=== PATIENT | female | born 1980 | race Caucasian/White ===

== ENCOUNTER → 2018-01-11 | Outpatient (CLI) | payer BC ==
--- NOTE | 2018-01-12 07:42 | MM ---
Reason for exam: screening (asymptomatic). Baseline mammogram. History: Took hormonal contraceptives for 5 years. Physical Findings: Nurse did not find any significant physical abnormalities on exam. MG 3D Screening Mammo W/Cad Bilateral CC and MLO view(s) were taken. The breast tissue is heterogeneously dense. This may lower the sensitivity of mammography. There is no discrete abnormality. These results were verbally communicated with the patient and result sheet given to the patient on 01/11/18. ASSESSMENT: Negative, BI-RAD 1 RECOMMENDATION: Routine screening mammogram of both breasts at age 42.
== END | disposition home or self-care (01) ==
LOC: RADMAMWWP 14:44
PROVIDERS: ATTEND Obstetrics & Gynecology
DX: Z12.31 Encounter for screening mammogram for malignant neoplasm of breast (principal)
CPT/HCPCS: 77063; 77067

== ENCOUNTER 2018-07-17 09:48 | Emergency (ER) | payer BC ==
[2018-07-17 09:53] VITALS: BP 146/85; PULSE 87; RESP 18; TEMP 98
[2018-07-17] MEDS ORDERED: KETOROLAC 60 MG/2 ML VIAL IM STA (10:19)
--- NOTE | 2018-07-17 10:32 | ED ---
Neck Injury/Pain HPI - General Chief Complaint: Neck Pain/Injury Stated Complaint: Neck/back pain Time Seen by Provider: 07/17/18 10:10 Source: patient, RN notes reviewed Mode of arrival: ambulatory Limitations: no limitations - History of Present Illness Initial Comments: 37-year-old female presented emergency Department chief complaint of neck pain. Patient states she's had ongoing neck problems states is related to clenching her teeth. She states she normally wears a bite splint. States he recently broke it's been having worsening symptoms. Patient was a chiropractor regular basis for alignment and adjustments. Patient states she went on Thursday states that she did not have much relief worsening symptoms at the week went back yesterday with no improvement. She states that she cannot tolerate the pain. States he rates from her neck down her shoulder blade and down her left arm. She states his numbness and pain. Symptoms are worse with movement she denies any chest pain or shortness breath no headache no focal weakness blurred vision , nausea vomiting. - Related Data Home Medications Medication Instructions Recorded Confirmed Amitriptyline HCl [Elavil] 1 tab PO HS 05/09/16 05/28/16 Loratadine [Claritin] 5 mg PO DAILY 05/28/16 05/28/16 Previous Rx's Medication Instructions Recorded Hydrocodone/Acetaminophen [[place] 1 - 2 each PO Q6HR PRN #30 tab 05/28/16 5-325] Ibuprofen [Motrin] 600 mg PO Q6HR PRN #30 tab 05/28/16 Cyclobenzaprine [Flexeril] 10 mg PO TID PRN #15 tab 07/17/18 methylPREDNISolone [Medrol Dose 4 mg PO DIRECTED #1 pack 07/17/18 Pack] traMADol HCl [Ultram] 50 mg PO Q6H PRN #20 tab 07/17/18 Allergies Allergy/AdvReac Type Severity Reaction Status Date / Time No Known Allergies Allergy Verified 07/17/18 09:53 Review of Systems ROS Statement: Those systems with pertinent positive or pertinent negative responses have been documented in the HPI. ROS Other: All systems not noted in ROS Statement are negative. Past Medical History Past Medical History: No Reported History Additional Past Medical History / Comment(s): History of cholelithiasis, migraine headaches History of Any Multi-Drug Resistant Organisms: None Reported Additional Past Surgical History / Comment(s): d&c Past Anesthesia/Blood Transfusion Reactions: Motion Sickness, Postoperative Nausea & Vomiting (PONV) Past Psychological History: Depression Smoking Status: Never smoker Past Alcohol Use History: Occasional Past Drug Use History: None Reported General Exam Limitations: no limitations General appearance: alert, in no apparent distress Head exam: Present: atraumatic, normocephalic, normal inspection Eye exam: Present: normal appearance, PERRL, EOMI. Absent: scleral icterus, conjunctival injection, periorbital swelling ENT exam: Present: normal exam, normal oropharynx, mucous membranes moist, TM's normal bilaterally Neck exam: Present: normal inspection, tenderness (Diffuse moderate tenderness on the left paraspinal left trapezius region). Absent: meningismus, full ROM ( Decreased range of motion secondary to pain), lymphadenopathy Respiratory exam: Present: normal lung sounds bilaterally. Absent: respiratory distress, wheezes, rales, rhonchi, stridor Cardiovascular Exam: Present: regular rate, normal rhythm, normal heart sounds. Absent: systolic murmur, diastolic murmur, rubs, gallop, clicks Extremities exam: Present: other (Strength equal bilaterally, full range of motion of both upper extremities she does report mild discomfort with left arm movement) Neurological exam: Present: alert, oriented X3, CN II-XII intact, reflexes normal. Absent: motor sensory deficit Course Vital Signs 07/17/18 09:49 Temperature 98 F Pulse Rate 87 Respiratory 18 Rate Blood Pressure 146/85 O2 Sat by Pulse 100 Oximetry Medical Decision Making - Medical Decision Making 37-year-old female presented for neck pain. Patient had CT which shows loss of lordosis. Patient does have obvious muscle spasms. This may be leading to her cervical radiculopathy-type symptoms. Patient was started on prednisone, Flexeril and tramadol. Patient will follow-up with Dr. Candelaria continued he denies return for any worsening symptoms. Disposition Clinical Impression: Cervical radiculopathy, Cervical paraspinal muscle spasm Disposition: HOME SELF-CARE Condition: Stable Instructions: Cervical Radiculopathy (ED) Additional Instructions: Please return to the Emergency Department if symptoms worsen or any other concerns. Prescriptions: Cyclobenzaprine [Flexeril] 10 mg PO TID PRN #15 tab PRN Reason: Muscle Spasm methylPREDNISolone [Medrol Dose Pack] 4 mg PO DIRECTED #1 pack traMADol HCl [Ultram] 50 mg PO Q6H PRN #20 tab PRN Reason: Pain Is patient prescribed a controlled substance at d/c from ED?: No Referrals: Ann Ramesh MD [Primary Care Provider] - 1-2 days [place] Gibson DO [Doctor of Osteopathic Medicine] - 1-2 days Time of Disposition: 11:18
--- NOTE | 2018-07-17 10:54 | CT ---
EXAMINATION TYPE: CT cervical spine wo con DATE OF EXAM: 07/17/2018 COMPARISON: None. HISTORY: Patient complains of neck pain with left arm/shoulder numbness and tingling. CT DLP: 214.1 mGycm Automated exposure control for dose reduction was used. TECHNIQUE: CT scan of the cervical spine is obtained without contrast, axial images are obtained, sa gittal and coronal reformatted images are also reviewed. FINDINGS: There are mild emphysematous changes within the lungs. There is apical scarring present wendie aterally. There is some shotty deep and posterior reticular adenopathy. No pathologically enlarged lymph nodes are seen. There is a mild reversal of the normal cervical lordosis. Vertebral body height and alignment are maintained. Atlantoaxial relationships are normal. No acute osseous lesion is seen. Intervertebral foramina are widely patent. There is no significant compressive discopathy. IMPRESSION: 1. NO ACUTE OSSEOUS LESION. 2. REVERSAL OF THE NORMAL CERVICAL LORDOSIS MAY BE SECONDARY TO MUSCULAR SPASM. 3. NO ACUTE COMPRESSIVE DISCOPATHY OR NEURAL COMPRESSION. 4. EMPHYSEMATOUS CHANGES WITHIN THE LUNGS.
== END 2018-07-17 11:30 | disposition home or self-care (01) ==
LOC: EC 09:48
DX: M54.12 Radiculopathy, cervical region (principal); M62.830 Muscle spasm of back; Z79.899 Other long term (current) drug therapy
CPT/HCPCS: 99283; 96372; 72125; J1885

== ENCOUNTER → 2021-06-05 | Outpatient (CLI) | payer BC ==
--- NOTE | 2021-06-05 13:45 | US ---
EXAMINATION TYPE: US transvaginal DATE OF EXAM: 06/05/2021 COMPARISON: 05/05/2014 CLINICAL HISTORY: N93.9 ABN UTERINE BLEEDING. bleeding with clots for 3-4 weeks, pelvic pain, TECHNIQUE: TV. Transvaginal sonographic images Date of LMP: unknown, bleeding constantly EXAM MEASUREMENTS: Uterus: 11.2 x 6.1 x 6.7 cm Endometrial Stripe: 1.3 cm Right Ovary: 4.5 x 3.5 x 3.1 cm Left Ovary: 2.6 x 1.4 x 2.2 cm 1. Uterus: Anteverted wnl 2. Endometrium: wnl 3. Right Ovary: 3.1cm simple cyst seen 4. Left Ovary: wnl 5. Bilateral Adnexa: wnl 6. Posterior cul-de-sac: wnl IMPRESSION: No definite sonographic abnormality is identified.
== END | disposition home or self-care (01) ==
LOC: RADUSWWP 12:49
PROVIDERS: ATTEND Family Medicine
DX: N93.9 Abnormal uterine and vaginal bleeding, unspecified (principal)
CPT/HCPCS: 76830

== ENCOUNTER → 2021-06-06 | Outpatient (CLI) | payer BC ==
[2021-06-06 15:04] LABS: Basophils # (A) 0.1 k/uL (0-0.2); Basophils % (A) 1 %; Eosinophils # (A) 0.1 k/uL (0-0.7); Eosinophils % (A) 2 %; HCT 39.2 % (34.0-46.0); HGB 13.6 gm/dL (11.4-16.0); Lymphocytes # (A) 1.5 k/uL (1.0-4.8); Lymphocytes % (A) 21 %; MCH 30.4 pg (25.0-35.0); MCHC 34.7 g/dL (31.0-37.0); MCV 87.8 fL (80.0-100.0); Mean Platelet Volume 6.5; Monocytes # (A) 0.4 k/uL (0-1.0); Monocytes % (A) 5 %; Neutrophils % (A) 70 %; Platelet Count 335 k/uL (150-450); RBC 4.46 m/uL (3.80-5.40); RDW 14.4 % (11.5-15.5); WBC 7.1 k/uL (3.8-10.6)
== END | disposition home or self-care (01) ==
LOC: LABPAT 09:39
PROVIDERS: ATTEND Obstetrics & Gynecology
DX: Z01.812 Encounter for preprocedural laboratory examination (principal); N95.0 Postmenopausal bleeding
CPT/HCPCS: 36415; 85025

== ENCOUNTER → 2021-06-21 | Day surgery (SDC) | payer BC ==
[2021-06-19 10:04] VITALS: BMI 25.7
[~2021-06-21] MED LIST: DEXAMETHASONE SOD PHOSPHATE 4 MG/ML 1 ML VIAL IV ONE; LACTATED RINGERS 1,000 ML IV ONE; LACTATED RINGERS 1,000 ML IV SCH; LIDOCAINE 1% (10MG/ML) FOR IV START INTRADERMA ONE; LIDOCAINE 1% (10MG/ML) FOR IV START INTRADERMA PRN; LIDOCAINE 1% INJ 10MG/ML (20 ML MDV) ONE; MIDAZOLAM 2 MG/2 ML VIAL IV PRN; MIDAZOLAM 2 MG/2 ML VIAL ONE; ONDANSETRON 4 MG/2 ML VIAL IVP ONE; PROPOFOL 10 MG/ML 20 ML VIAL IV ONE; Pre Op ABX Message 1 EACH MISC MISCELLANE ONE; SCOPOLAMINE 1.5MG/72HR PATCH TRANSDERM ONE; fentaNYL (PF) 50 MCG/ML 2 ML AMP ONE
[2021-06-21 09:07] VITALS: TEMP 97.5
--- NOTE | 2021-06-21 09:07 | P.OP ---
Date of Procedure: 06/21/21 Preoperative Diagnosis: Menorrhagia, anemia Postoperative Diagnosis: Same, large multiparous cervix, grade 2 uterine prolapse. Procedure(s) Performed: Hysteroscopy, NovaSure endometrial ablation Anesthesia: KEYLA Surgeon: Maria A Mejias Estimated Blood Loss (ml): 20 IV fluids (ml): 500 Urine output (ml): 300 Pathology: none sent Condition: stable Disposition: PACU Operative Findings: Large multiparous cervix, retroverted uterus, grade 2+ uterine prolapse. Negative adnexa bilaterally. Normal-appearing endometrial cavity. Description of Procedure: Patient is brought to the operating suite where a general anesthetic is administered without difficulty. She's placed in the dorsal lithotomy position. The appropriate timeout is performed to assure proper patient and procedural identification. Urine hCG is negative. Bladder is drained for approximately 300 mL of clear yellow urine. Examination under anesthesia reveals a 2+ uterine prolapse, large multiparous cervix, negative adnexa bilaterally, retroverted cavity. Weighted speculum was placed into the vagina and the anterior lip of the cervix is grasped with a double-tooth tenaculum. The cervix is gently and systematically dilated using Hanks dilators. Hysteroscope was placed, cavity is distended with sterile saline and inspected. No polyps, fibroids, or defects noted. Hysteroscope was removed. The NovaSure wand is placed and seated properly. Uterine length of 6.5 cm, width of 4.7 cm is noted. The machine is properly calibrated and enabled. For 46 seconds and a power of 168 W the procedure is carried out. When completed, t he wand is reduced and removed. Hysteroscope was once again placed and the cavity appears to be reasonably uniformly blanched. Instrumentation is removed. All sponge needle and enhancement counts are correct. Cervix is clean and dry. Patient is brought back to recovery room in very good condition with stable vital signs including a blood pressure of 110/64, pulse 66, 97% O2 saturation. Toradol is given prior to leaving the operative room. She will follow-up with me in the office in 2 weeks.
[2021-06-21] MEDS: HYDROmorphone 0.5 MG/0.5 ML SYRINGE IVP PRN ×2 (09:13→09:22)
[2021-06-21 10:39] VITALS: RESP 17
[2021-06-21 11:20] VITALS: BP 111/70; PULSE 66
== END ==
LOC: OR 07:15
PROVIDERS: ATTEND Obstetrics & Gynecology
DX: N81.4 Uterovaginal prolapse, unspecified (principal); Z64.1 Problems related to multiparity; N92.0 Excessive and frequent menstruation with regular cycle; D64.9 Anemia, unspecified; J45.909 Unspecified asthma, uncomplicated; E07.9 Disorder of thyroid, unspecified; M50.20 Other cervical disc displacement, unspecified cervical region; Z90.49 Acquired absence of other specified parts of digestive tract; Z98.890 Other specified postprocedural states; Z82.49 Family history of ischemic heart disease and other diseases of the circulatory system; Z83.49 Family history of other endocrine, nutritional and metabolic diseases; Z82.0 Family history of epilepsy and other diseases of the nervous system; Z79.890 Hormone replacement therapy
CPT/HCPCS: 81025; 58563; J2250; J1100; J2405; J2001; J3010; J2704; J1170

== ENCOUNTER → 2021-08-16 | Outpatient (CLI) | payer BC ==
[2021-08-16 11:44] LABS: African American GFR (CKD) >90 (>60 ml/min/1.73 sqM); Anion Gap 6 mmol/L; Blood Urea Nitrogen 17 mg/dL (7-17); Carbon Dioxide 27 mmol/L (22-30); Chloride 103 mmol/L (98-107); Glucose 95 mg/dL (74-99); Non-African American GFR(CKD) >90 (>60 ml/min/1.73 sqM); Potassium 4.5 mmol/L (3.5-5.1); Sodium 136 mmol/L (137-145)
[2021-08-16 11:46] LABS: Basophils % (A) 1 %; Eosinophils # (A) 0.1 k/uL (0-0.7); Eosinophils % (A) 1 %; HCT 44.6 % (34.0-46.0); HGB 14.9 gm/dL (11.4-16.0); Lymphocytes # (A) 1.2 k/uL (1.0-4.8); Lymphocytes % (A) 18 %; MCH 30.3 pg (25.0-35.0); MCHC 33.5 g/dL (31.0-37.0); MCV 90.5 fL (80.0-100.0); Mean Platelet Volume 6.5; Monocytes # (A) 0.4 k/uL (0-1.0); Monocytes % (A) 6 %; Neutrophils # (A) 4.9 k/uL (1.3-7.7); Neutrophils % (A) 74 %; Platelet Count 323 k/uL (150-450); RBC 4.93 m/uL (3.80-5.40); RDW 12.4 % (11.5-15.5); WBC 6.6 k/uL (3.8-10.6)
== END | disposition home or self-care (01) ==
LOC: LABWHC1 10:23
PROVIDERS: ATTEND Obstetrics & Gynecology
DX: Z01.812 Encounter for preprocedural laboratory examination (principal); N92.0 Excessive and frequent menstruation with regular cycle; N94.0 Mittelschmerz; N80.0 Endometriosis of uterus; R10.2 Pelvic and perineal pain
CPT/HCPCS: 36415; 80051; 82565; 82947; 84520; 85025; 87086

== ENCOUNTER 2021-08-26 08:35 | Observation (INO) | payer BC ==
[2021-08-23 09:17] VITALS: BMI 25.0
[~2021-08-26 08:35] MED LIST changes: -LACTATED RINGERS 1,000 ML IV ONE; -LIDOCAINE 1% (10MG/ML) FOR IV START INTRADERMA ONE; -LIDOCAINE 1% INJ 10MG/ML (20 ML MDV) ONE; +METOCLOPRAMIDE 5 MG/ML 2 ML VIAL IVP PRN; -MIDAZOLAM 2 MG/2 ML VIAL ONE; -PROPOFOL 10 MG/ML 20 ML VIAL IV ONE; -Pre Op ABX Message 1 EACH MISC MISCELLANE ONE; -fentaNYL (PF) 50 MCG/ML 2 ML AMP ONE
[2021-08-26] MEDS ORDERED: MIDAZOLAM 2 MG/2 ML VIAL IVP ONE (09:46)
[2021-08-26] MEDS ORDERED: diphenhydrAMINE 50 MG/ML 1 ML VIAL ONE (10:01)
[2021-08-26] MEDS ORDERED: diphenhydrAMINE 50 MG/ML 1 ML VIAL IVP ONE (10:03)
[2021-08-26] MEDS ORDERED: LIDOCAINE 1% INJ 10MG/ML (20 ML MDV) ONE (11:09)
[2021-08-26] MEDS ORDERED: fentaNYL (PF) 50 MCG/ML 2 ML AMP ONE (11:09)
[2021-08-26] MEDS ORDERED: PROPOFOL 10 MG/ML 20 ML VIAL IV ONE (11:09)
[2021-08-26] MEDS ORDERED: ACETAMINOPHEN IV (For NPO) 1,000 MG/100 ML VIAL ONE (11:09)
[2021-08-26] MEDS ORDERED: SUCCINYLCHOLINE CHLORIDE 100 MG/5 ML SYR IV ONE (11:09)
[2021-08-26] MEDS ORDERED: KETOROLAC 15 MG/ML 1 ML VIAL ONE (11:09)
[2021-08-26] MEDS ORDERED: MORPHINE SULFATE (PF) 0.3 MG/0.3 ML SYR ONE (11:09)
[2021-08-26] MEDS ORDERED: BACITRACIN ZINC 500 UNIT/GM OINT 28.4 GM TUBE TOPICAL ONE (11:23)
[2021-08-26] MEDS ORDERED: VASOPRESSIN 20 UNIT/ML 1 ML VIAL SQ ONE (11:23)
[2021-08-26] MEDS ORDERED: LACTATED RINGERS 1,000 ML IV ONE (12:07)
[2021-08-26] MEDS ORDERED: ZOLPIDEM 5 MG TAB PO PRN (12:24)
[2021-08-26] MEDS ORDERED: SIMETHICONE 80 MG CHEWABLE PO PRN (12:24)
[2021-08-26] MEDS ORDERED: METOCLOPRAMIDE 5 MG/ML 2 ML VIAL IVP PRN (12:24)
[2021-08-26] MEDS ORDERED: diphenhydrAMINE 50 MG/ML 1 ML VIAL IVP PRN (12:24)
[2021-08-26] MEDS ORDERED: IBUPROFEN 600 MG TAB PO PRN (12:24)
[2021-08-26] MEDS ORDERED: ONDANSETRON 4 MG/2 ML VIAL IVP PRN (12:24)
--- NOTE | 2021-08-26 12:24 | P.OP ---
Date of Procedure: 08/26/21 Preoperative Diagnosis: Menorrhagia, adenomyosis, dyspareunia Postoperative Diagnosis: Same, normal-appearing ovaries bilaterally Procedure(s) Performed: Vaginal hysterectomy Anesthesia: KEYLA Surgeon: Maria A Mejias Porcelain Turner #1: Deshaun Potter Estimated Blood Loss (ml): 50 IV fluids (ml): 500 Urine output (ml): 450 Pathology: other (Cervix and uterus) Condition: stable Disposition: PACU Description of Procedure: Patient is brought to the operating suite where a general anesthetic is administered without difficulty after placement of spinal with Duramorph. She's placed in the dorsal lithotomy position. Antibiotics given. The cervix, vagina, perineal bodies are all prepped and draped in usual sterile fashion. The appropriate timeout is performed to assure proper patient and procedural identification. Bladder is drained for approximately 450 mL of clear yellow urine. Speculum was placed into the vagina. Anterior lip of the cervix is grasped with a double-tooth tenaculum. Cervix is injected circumferentially with a dilute Pitressin solution. A winnebago blade scalpel is used to sweep the mucosa from the underlying fascial plane. Peritoneum is entered at 6:00, suture tied with 2-0 Vicryl and held with a hemostat. The large billed speculum is then placed into the peritoneal cavity. The right uterosacral ligament is identified, clamped cut and suture ligated, it is held laterally with a hemostat. Same procedure is carried out contralaterally. Uterine vasculature is identified, clamped cut and suture ligated. Please note that 0 Vicryl suture is used for the entire hysterectomy procedure. 2 additional pedicles are taken superior to the vessels. Peritoneum is entered at 12:00. The uterus is "walked out" posteriorly. Eduardo clamps are used across the final pedicles. Cervix and uterus are removed. The pedicles are tied with 0 Vicryl suture in a Johanny stitch, flashed, and retied for excellent hemostasis. Both ovaries appear normal to inspection. All pedicles and vessels at this time are hemostatically intact. The speculum is then changed to the shallow weighted speculum. The 2-0 Vicryl suture at 6:00 is brought around in a pursestring fashion to close the perit oneum. Uterosacral ligaments are brought across to incorporate the opposite ligament as well as vaginal mucosa. 3 additional [id number] 8 sutures of 0 Vicryl are used for final vaginal cuff closure. The vaginal cuff is clean and dry. It is packed with one-inch iodophor gauze with basic tracing. Graves catheter is placed, urine is clear. All sponge needle and enhancement counts are correct. Total estimated blood loss 50 mL's. All sponge needle and enhancement counts are correct. Patient is brought back to recovery room in excellent condition with stable vital signs including blood pressure 97/51, pulse 57.
[2021-08-26] MEDS: HYDROmorphone 0.5 MG/0.5 ML SYRINGE IVP PRN ×3 (12:41→13:15)
[2021-08-26] MEDS ORDERED: NALOXONE 0.4 MG/ML 1 ML VIAL IV PRN (13:55)
[2021-08-26] MEDS: KETOROLAC 15 MG/ML 1 ML VIAL IVP PRN ×2 (16:51→22:56)
[2021-08-26] MEDS ORDERED: SENNOSIDES-DOCUSATE SODIUM 1 EACH TAB PO STA (20:20)
[2021-08-26 23:44] VITALS: TEMP 98
[2021-08-27] MEDS ORDERED: THYROID, PORK 30 MG TAB PO SCH (06:00)
[2021-08-27] MEDS: KETOROLAC 15 MG/ML 1 ML VIAL IVP PRN (06:03)
--- NOTE | 2021-08-27 07:41 | P.DS ---
Providers Date of admission: 08/26/21 23:38 Expected date of discharge: 08/27/21 Attending physician: Maria A Mejias Primary care physician: [facility] Course: This is a 41-year-old white female 3 para 3003 who presented with increasingly symptomatic menorrhagia and dyspareunia. Sonographic evidence of adenomyosis was noted, decision was made to proceed with vaginal hysterectomy. Please see dictated history and physical for details. Patient underwent vaginal hysterectomy yesterday, spinal with Duramorph was placed. She did well intraoperatively, ovaries left in situ per her wishes. Graevs catheter and vaginal packing were placed. She was brought to the recovery room and then up to the floor in very stable condition. This morning the patient is feeling well. She is voiding, ambulating, passing flatus without difficulty. There is only scant vaginal bleeding. Vital signs are stable and she is afebrile. There is no CVA tenderness. Extremities are negative. The abdomen is soft and nontender, active bowel sounds, no rebound or guarding. Patient is judged to be in very good condition for discharge home. She will follow-up with me in the office in 2 weeks. She is reminded no intercourse, tampons or douching. She will use [id number] Advil or Aleve, or Motrin as needed for pain. She will call with any fevers shakes or chills, foul smelling or copious lochia, with the passage of large blood clots, with any pain not alleviated by [id number] products, or indeed with any concerns. Assessment: Doing well postoperative day #1 Patient Condition at Discharge: Good Plan - Discharge Summary Discharge Rx Participant: No New Discharge Prescriptions: No Action Ibuprofen [Motrin Ib] 800 mg PO DIRECTED PRN PRN Reason: Pain Multivit with Calcium,Iron,Min [Women's Multivitamin] 1 each PO DAILY Iron 26 mg PO DAILY Nitrofurantoin Monohyd/M-Cryst [Macrobid] 100 mg PO Q12HR Thyroid,Pork [Waste Removalist Thyroid] 15 mg PO DAILY L.acidoph,Paracasei, B.lactis [Probiotic] 1 each PO DAILY Cholecalciferol [Vitamin D3 (25 Mcg = 1000 Iu)] 5,000 unit PO DAILY Amitriptyline HCl [Elavil] 25 mg PO HS Discharge Medication List Cholecalciferol [Vitamin D3 (25 Mcg = 1000 Iu)] 5,000 unit PO DAILY 06/19/21 [History] Ibuprofen [Motrin Ib] 800 mg PO DIRECTED PRN 06/19/21 [History] Iron 26 mg PO DAILY 06/19/21 [History] L.acidoph,Paracasei, B.lactis [Probiotic] 1 each PO DAILY 06/19/21 [History] Multivit with Calcium,Iron,Min [Women's Multivitamin] 1 each PO DAILY 06/19/21 [History] Thyroid,Pork [Waste Removalist Thyroid] 15 mg PO DAILY 06/19/21 [History] Amitriptyline HCl [Elavil] 25 mg PO HS 08/23/21 [History] Nitrofurantoin Monohyd/M-Cryst [Macrobid] 100 mg PO Q12HR 08/23/21 [History] Follow up Appointment(s)/Referral(s): Maria A Mejias MD [STAFF PHYSICIAN] - 2 Weeks Discharge Disposition: HOME SELF-CARE
[2021-08-27 08:30] VITALS: BP 114/66; PULSE 63; RESP 18
[2021-08-27] MEDS ORDERED: ACETAMINOPHEN TAB 325 MG TAB PO PRN (12:24)
--- NOTE | 2021-08-27 13:21 | P.ANPRN ---
Procedure Note - Anesthesia - Epidural/Spinal Spinal Time Out Performed: Yes Date of Procedure: 08/26/21 Procedure Start Time: 09:45 Procedure Stop Time: 09:48 Location of Patient: PreOp Indication: Acute Post-Operative Pain, Requested by Surgeon Sedation Type: Sedate with meaningful contact maintained Preparation: Sterile Prep Position: Sitting Needle Guage: 25 Blood Aspirated: No Pain Paresthesia on Injection Noted: No Events: Uneventful and Well Tolerated (duramoph 300 edward plus fentanyl 25 edward)
== END 2021-08-27 09:54 | disposition home or self-care (01) ==
LOC: OR 08:35 → 4FBP 12:21 → OR 23:38
PROVIDERS: ADMIT Obstetrics & Gynecology; ATTEND Obstetrics & Gynecology
DX: N80.0 Endometriosis of uterus (principal); N94.10 Unspecified dyspareunia; N94.6 Dysmenorrhea, unspecified; N92.0 Excessive and frequent menstruation with regular cycle; N93.8 Other specified abnormal uterine and vaginal bleeding; E07.9 Disorder of thyroid, unspecified; J45.909 Unspecified asthma, uncomplicated; M50.20 Other cervical disc displacement, unspecified cervical region; Z20.822 Contact with and (suspected) exposure to COVID-19; Z79.890 Hormone replacement therapy; Z90.49 Acquired absence of other specified parts of digestive tract; Z98.890 Other specified postprocedural states; Z82.49 Family history of ischemic heart disease and other diseases of the circulatory system; Z82.69 Family history of other diseases of the musculoskeletal system and connective tissue; Z83.49 Family history of other endocrine, nutritional and metabolic diseases
CPT/HCPCS: 58260; 81025; 86900; 86901; 86850; 88307; 87635; 62322; G0378; J2250; J1200; J1100; J2765; J0690; J2405; J2001; J2274; J3010; J0131; J1885 ×2; J0330; J2704; J1170

== ENCOUNTER 2021-08-28 13:08 | Day surgery (SDC) | payer BC ==
[2021-08-28] MEDS ORDERED: LACTATED RINGERS 1,000 ML IV ONE (13:36)
[2021-08-28] MEDS ORDERED: LIDOCAINE 1% (10MG/ML) FOR IV START INTRADERMA ONE (13:36)
[2021-08-28 14:00] VITALS: TEMP 97.9
[2021-08-28 14:52] VITALS: RESP 16
[2021-08-28] MEDS ORDERED: ACETAMINOPHEN TAB 325 MG TAB ONE (15:10)
[2021-08-28] MEDS ORDERED: ACETAMINOPHEN TAB 325 MG TAB PO ONE (15:10)
[2021-08-28 15:44] VITALS: BP 122/78; PULSE 75
--- NOTE | 2021-08-28 17:32 | P.PN ---
Progress Note - Text Anesthesia was consulted by Dr. Mejias to evaluate a patient that has symptoms and signs of a post dural puncture headache. The patient received a spinal 2. days ago. She is status post vaginal hysterectomy. The patient states that her headache is increased in severity when she is standing and sitting. Her headache symptoms subside when she is in the supine position. The patient has tried a course of conservative therapy including fluids, caffeine and pain meds. The conservative treatment has not relieved her headache symptoms when she is in the sitting and standing position. Patient states she feels pain in the back of her neck up into her temporal and frontal regions. Patient does exhibit some mild photophobia. The patient does report some nausea at this time. Procedure: The procedure and its risks and benefits were explained to the patient. The patient understood and consented to have an lumbar epidural epi dural blood patch performed. The patient was placed in the sitting position. The patient's low back was sterilely prepped and draped. An 18-gauge Touhy was placed in the patient's epidural space at L3-L4 without difficulty. No CSF or blood was observed. Then approximately[17 ] mL's of the patient's autologous blood was injected in the epidural space incrementally. Patient's blood was drawn by an sales support assistant under sterile conditions. The patient then noticed a decrease intensity of her headache in the sitting position almost immdiately. The patient was then placed in the supine position. She tolerated the procedure well. The patient was instructed to remain at bed rest for the next 2-3 hours after she gets home.. She also was instructed to continue with fluids and any pain medicines as needed. The patient was also instructed to refrain from any bending or lifting today.
== END 2021-08-28 15:46 | disposition home or self-care (01) ==
LOC: OR 13:08
PROVIDERS: ATTEND Anesthesiology
DX: G97.1 Other reaction to spinal and lumbar puncture (principal)
CPT/HCPCS: 62273

== ENCOUNTER → 2021-11-11 | Outpatient (CLI) | payer BC ==
--- NOTE | 2021-11-12 09:32 | MM ---
Reason for exam: additional evaluation requested from prior study. Last mammogram was performed 3 years and 10 months ago. History: Took hormonal contraceptives for 5 years. Taking progesterone for 6 months beginning at age 32. Physical Findings: Nurse did not find any significant physical abnormalities on exam. MG 3D Diag Mammo W/Cad GIGI Bilateral CC and MLO view(s) were taken. Prior study comparison: January 11, 2018, bilateral MG 3d screening mammo w/cad. The breast tissue is heterogeneously dense. This may lower the sensitivity of mammography. There is no discrete abnormality. These results were verbally communicated with the patient and result sheet given to the patient on 11/11/21. ASSESSMENT: Incomplete: need additional imaging evaluation, BI-RAD 0 RECOMMENDATION: Ultrasound of the left breast. (focal area of pain dense tissue)
--- NOTE | 2021-11-12 09:33 | USB ---
Reason for exam: additional evaluation requested from abnormal screening. History: Took hormonal contraceptives for 5 years. Taking progesterone for 6 months beginning at age 32. US Breast Limited LT Left limited breast ultrasound including focal area of concern, retroareolar and axilla demonstrates no cystic or solid lesion seen. These results were verbally communicated with the patient and result sheet given to the patient on 11/11/21. ASSESSMENT: Negative, BI-RAD 1 RECOMMENDATION: Routine screening mammogram of both breasts at age 42. Manage patient on a clinical basis.
== END | disposition home or self-care (01) ==
LOC: RADMAMWWP 14:20
PROVIDERS: ATTEND Obstetrics & Gynecology
DX: N64.4 Mastodynia (principal); R92.8 Other abnormal and inconclusive findings on diagnostic imaging of breast
CPT/HCPCS: 77062; 77066

== ENCOUNTER 2022-02-11 13:10 | Emergency (ER) | payer BC ==
[2022-02-11 13:28] VITALS: RESP 18
--- NOTE | 2022-02-11 13:54 | ED ---
General Adult HPI - General Chief complaint: Urogenital Stated complaint: Anxiety Time Seen by Provider: 02/11/22 13:15 Source: patient, EMS, RN notes reviewed, old records reviewed Mode of arrival: EMS Limitations: no limitations - History of Present Illness Initial comments: This is a 41-year-old female who presents to the emergency department stating that she woke up this morning was feeling weak and tired. Patient states she went to work and she got lightheaded started having a panic attack. Patient states she was breathing extremely fast. Tingling around her mouth and her fingers and thought she might pass out. At this point time she also felt like she couldn't get a full breath in the end else called. Patient states currently she is feeling little bit better but she still feels very fatigued. Patient states she has been battling a couple urinary tract infections over the last few months as well as yeast infection and has had 3 episodes where she's having hives and doesn't have an explanation. Patient states she's also going through some marital difficulties and that has caused her quite a bit of stress. - Related Data Home Medications Medication Instructions Recorded Confirmed L.acidoph,Paracasei, B.lactis 1 tab PO HS 06/19/21 02/11/22 [Probiotic] Multivit with Calcium,Iron,Min 1 tab PO HS 06/19/21 02/11/22 [Women's Multivitamin] Amitriptyline HCl 50 mg PO HS 02/11/22 02/11/22 Cholecalciferol (Vitamin D3) 75 mcg PO HS 02/11/22 02/11/22 [Vitamin D3 (3000 Iu)] Cranberry Fruit Extract [Cranberry] 500 mg PO HS 02/11/22 02/11/22 Allergies Allergy/AdvReac Type Severity Reaction Status Date / Time sulfamethoxazole Allergy Rash/Hives/lip Verified 02/11/22 14:36 [From Bactrim] swelling trimethoprim [From Bactrim] Allergy Rash/Hives/lip Verified 02/11/22 14:36 swelling Review of Systems ROS Statement: Those systems with pertinent positive or pertinent negative responses have been documented in the HPI. ROS Other: All systems not noted in ROS Statement are negative. Past Medical History Past Medical History: No Reported History Additional Past Medical History / Comment(s): History of cholelithiasis, migraine headaches History of Any Multi-Drug Resistant Organisms: None Reported Past Surgical History: Cholecystectomy, Uterine Ablation Additional Past Surgical History / Comment(s): d&c Past Anesthesia/Blood Transfusion Reactions: Motion Sickness, Postoperative Nausea & Vomiting (PONV) Past Psychological History: Depression Additional Psychological History / Comment(s): ppd Smoking Status: Never smoker Past Alcohol Use History: Occasional Past Drug Use History: None Reported - Past Family History Mother Family Medical History: No Reported History Father Additional Family Medical History / Comment(s): NOT SURE OF FATHER'S HHX General Exam - General Exam Comments Initial Comments: GENERAL: Patient is well-developed and well-nourished. Patient is nontoxic and well- hydrated and is in no acute distress. ENT: Neck is soft and supple. No significant lymphadenopathy is noted. Oropharynx is clear. Moist mucous membranes. Neck has full range of motion without eliciting any pain. EYES: The sclera were anicteric and conjunctiva were pink and moist. Extraocular movements were intact and pupils were equal round and reactive to light. Eyelids were unremarkable. PULMONARY: Unlabored respirations. Good breath sounds bilaterally. No audible rales rhonchi or wheezing was noted. CARDIOVASCULAR: There is a regular rate and rhythm without any murmurs gallops or rubs. ABDOMEN: Soft and nontender with normal bowel sounds. SKIN: Skin is clear with no lesions or rashes and otherwise unremarkable. NEUROLOGIC: Patient is alert and oriented x3. Cranial nerves II through XII are grossly intact. Motor and sensory are also intact. Normal speech, volume and content. Symmetrical smile. MUSCULOSKELETAL: Normal extremities with adequate strength and full range of motion. No lower extremity swelling or edema. No calf tenderness. LYMPHATICS: No significant lymphadenopathy is noted PSYCHIATRIC: Patient is mildly anxious Limitations: no limitations Course Vital Signs 02/11/22 13:13 Temperature 98.0 F Pulse Rate 74 Respiratory 18 Rate Blood Pressure 130/79 O2 Sat by Pulse 99 Oximetry Medical Decision Making - Medical Decision Making EKG shows sinus rhythm at 60 bpm MA interval 190 QRS is 104 QT interval is 4:15 QTC is 432. Patient's EKG shows no ST segment elevation or depression Chest x-ray shows no acute abnormality. I gave the patient Ativan emergency department I will back in and reevaluated her and she was doing considerably better and she agrees was probably an anxiety attack. - Lab Data Result diagrams: 02/11/22 14:06 02/11/22 14:06 Lab Results 02/11/22 02/11/22 02/11/22 Range/Units 14:06 14:06 14:06 WBC 7.4 (3.8-10.6) k/uL RBC 4.62 (3.80-5.40) m/uL Hgb 14.7 (11.4-16.0) gm/dL Hct 41.9 (34.0-46.0) % MCV 90.6 (80.0-100.0) fL MCH 31.8 (25.0-35.0) pg MCHC 35.1 (31.0-37.0) g/dL RDW 12.0 (11.5-15.5) % Plt Count 383 (150-450) k/uL MPV 6.5 Neutrophils % 74 % Lymphocytes % 17 % Monocytes % 7 % Eosinophils % 1 % Basophils % 1 % Neutrophils # 5.4 (1.3-7.7) k/uL Lymphocytes # 1.2 (1.0-4.8) k/uL Monocytes # 0.5 (0-1.0) k/uL Eosinophils # 0.0 (0-0.7) k/uL Basophils # 0.0 (0-0.2) k/uL PT 11.1 (9.0-12.0) sec INR 1.0 (<1.2) APTT 23.8 (22.0-30.0) sec Sodium (137-145) mmol/L Potassium (3.5-5.1) mmol/L Chloride (98-107) mmol/L Carbon Dioxide (22-30) mmol/L Anion Gap mmol/L BUN (7-17) mg/dL Creatinine (0.52-1.04) mg/dL Est GFR (CKD-EPI)AfAm (>60 ml/min/1.73 sqM) Est GFR (CKD-EPI)NonAf (>60 ml/min/1.73 sqM) Glucose (74-99) mg/dL Calcium (8.4-10.2) mg/dL Magnesium (1.6-2.3) mg/dL Total Bilirubin (0.2-1.3) mg/dL AST (14-36) U/L ALT (4-34) U/L Alkaline Phosphatase (38-126) U/L Troponin I (0.000-0.034) ng/mL Total Protein (6.3-8.2) g/dL Albumin (3.5-5.0) g/dL Urine Color Colorless Urine Appearance Clear (Clear) Urine pH 7.5 (5.0-8.0) Ur Specific Bladen 1.004 (1.001-1.035) Urine Protein Negative (Negative) Urine Glucose (UA) Negative (Negative) Urine Ketones Trace H (Negative) Urine Blood Negative (Negative) Urine Nitrite Negative (Negative) Urine Bilirubin Negative (Negative) Urine Urobilinogen <2.0 (<2.0) mg/dL Ur Leukocyte Esterase Negative (Negative) 02/11/22 02/11/22 Range/Units 14:06 14:06 WBC (3.8-10.6) k/uL RBC (3.80-5.40) m/uL Hgb (11.4-16.0) gm/dL Hct (34.0-46.0) % MCV (80.0-100.0) fL MCH (25.0-35.0) pg MCHC (31.0-37.0) g/dL RDW (11.5-15.5) % Plt Count (150-450) k/uL MPV Neutrophils % % Lymphocytes % % Monocytes % % Eosinophils % % Basophils % % Neutrophils # (1.3-7.7) k/uL Lymphocytes # (1.0-4.8) k/uL Monocytes # (0-1.0) k/uL Eosinophils # (0-0.7) k/uL Basophils # (0-0.2) k/uL PT (9.0-12.0) sec INR (<1.2) APTT (22.0-30.0) sec Sodium 136 L (137-145) mmol/L Potassium 4.0 (3.5-5.1) mmol/L Chloride 102 (98-107) mmol/L Carbon Dioxide 21 L (22-30) mmol/L Anion Gap 13 mmol/L BUN 13 (7-17) mg/dL Creatinine 0.76 (0.52-1.04) mg/dL Est GFR (CKD-EPI)AfAm >90 (>60 ml/min/1.73 sqM) Est GFR (CKD-EPI)NonAf >90 (>60 ml/min/1.73 sqM) Glucose 93 (74-99) mg/dL Calcium 9.4 (8.4-10.2) mg/dL Magnesium 2.1 (1.6-2.3) mg/dL Total Bilirubin 0.9 (0.2-1.3) mg/dL AST 24 (14-36) U/L ALT 15 (4-34) U/L Alkaline Phosphatase 49 (38-126) U/L Troponin I <0.012 (0.000-0.034) ng/mL Total Protein 7.7 (6.3-8.2) g/dL Albumin 4.5 (3.5-5.0) g/dL Urine Color Urine Appearance (Clear) Urine pH (5.0-8.0) Ur Specific Bladen (1.001-1.035) Urine Protein (Negative) Urine Glucose (UA) (Negative) Urine Ketones (Negative) Urine Blood (Negative) Urine Nitrite (Negative) Urine Bilirubin (Negative) Urine Urobilinogen (<2.0) mg/dL Ur Leukocyte Esterase (Negative) Disposition Clinical Impression: Acute anxiety Disposition: HOME SELF-CARE Condition: Good Instructions (If sedation given, give patient instructions): Anxiety (ED) Is patient prescribed a controlled substance at d/c from ED?: No Referrals: Ann Ramesh MD [Primary Care Provider] - 1-2 days Time of Disposition: 14:56
[2022-02-11 14:24] LABS: Basophils % (A) 1 %; Eosinophils % (A) 1 %; HCT 41.9 % (34.0-46.0); HGB 14.7 gm/dL (11.4-16.0); Lymphocytes # (A) 1.2 k/uL (1.0-4.8); Lymphocytes % (A) 17 %; MCH 31.8 pg (25.0-35.0); MCHC 35.1 g/dL (31.0-37.0); MCV 90.6 fL (80.0-100.0); Mean Platelet Volume 6.5; Monocytes # (A) 0.5 k/uL (0-1.0); Monocytes % (A) 7 %; Neutrophils # (A) 5.4 k/uL (1.3-7.7); Neutrophils % (A) 74 %; Platelet Count 383 k/uL (150-450); RBC 4.62 m/uL (3.80-5.40); WBC 7.4 k/uL (3.8-10.6)
--- NOTE | 2022-02-11 14:33 | XR ---
EXAMINATION TYPE: XR chest 2V DATE OF EXAM: 02/11/2022 COMPARISON: NONE HISTORY: Chest pain. TECHNIQUE: Frontal and lateral views of the chest are obtained. FINDINGS: There is no focal air space opacity, pleural effusion, or pneumothorax seen. The cardiac silhouette size is within normal limits. Spine is straightened on lateral view. IMPRESSION: No acute process.
[2022-02-11] MEDS: LORazepam 2 MG/ML INJ IV STA ×2 (14:38→14:54)
[2022-02-11 14:41] LABS: ALT 15 U/L (4-34); AST 24 U/L (14-36); African American GFR (CKD) >90 (>60 ml/min/1.73 sqM); Albumin 4.5 g/dL (3.5-5.0); Alkaline Phosphatase 49 U/L (38-126); Anion Gap 13 mmol/L; Blood Urea Nitrogen 13 mg/dL (7-17); Calcium 9.4 mg/dL (8.4-10.2); Carbon Dioxide 21 mmol/L (22-30); Chloride 102 mmol/L (98-107); Glucose 93 mg/dL (74-99); Magnesium 2.1 mg/dL (1.6-2.3); Non-African American GFR(CKD) >90 (>60 ml/min/1.73 sqM); Sodium 136 mmol/L (137-145); Total Bilirubin 0.9 mg/dL (0.2-1.3); Total Protein 7.7 g/dL (6.3-8.2)
[2022-02-11 14:42] LABS: Partial Thromboplastin Time 23.8 sec (22.0-30.0); Prothrombin Time 11.1 sec (9.0-12.0)
[2022-02-11 14:49] LABS: Appearance,Urine Clear (Clear); Bilirubin,Urine Negative (Negative); Blood,Urine Negative (Negative); Color,Urine Colorless; Glucose,Urine (UA) Negative (Negative); Ketones,Urine Trace (Negative); Leukocyte Esterase,Urine Negative (Negative); Nitrite,Urine Negative (Negative); PH, Urine 7.5 (5.0-8.0); Protein,Urine Negative (Negative); Specific Gravity,Urine 1.004 (1.001-1.035); Urobilinogen,Urine <2.0 mg/dL (<2.0)
[2022-02-11 15:22] VITALS: BP 128/87; PULSE 79; TEMP 97.5
== END 2022-02-11 15:22 | disposition home or self-care (01) ==
LOC: EC 13:10
DX: F41.9 Anxiety disorder, unspecified (principal); G43.909 Migraine, unspecified, not intractable, without status migrainosus; Z88.2 Allergy status to sulfonamides
CPT/HCPCS: 36415; 71046; 80053; 81003; 83735; 84484; 85025; 85610; 85730; 93005; 99284

== ENCOUNTER → 2023-02-19 | Outpatient (CLI) | payer BC ==
--- NOTE | 2023-02-20 08:05 | MM ---
Reason for Exam: Screening (asymptomatic). Last mammogram was performed 1 year(s) and 3 month(s) ago. Patient History: Menarche at age 15. First Full-Term at age 27. Hysterectomy at age 40. Progesterone for 6 months starting at age 32. Patient used Hormonal Contraceptives for 5 years. Risk Values: Irasema 5 year model risk: 0.6%. NCI Lifetime model risk: 11.1%. Prior Study Comparison: 01/11/2018 Bilateral Screening Mammogram, [facility]. 11/11/2021 Bilateral Diagnostic Mammogram, [facility]. Tissue Density: The breast tissue is heterogeneously dense. This may lower the sensitivity of mammography. Findings: Analyzed By CAD. There is no suspicious group of microcalcifications or new suspicious mass in either breast. Overall Assessment: Negative, BI-RAD 1 Management: Screening Mammogram of both breasts in 1 year. A clinical breast exam by your physician is recommended on an annual basis and results should be correlated with mammographic findings. Electronically signed and approved by: Steve Medina M.D. Radiologis
== END | disposition home or self-care (01) ==
LOC: RADMAMWWP 10:43
PROVIDERS: ATTEND Obstetrics & Gynecology
DX: Z12.31 Encounter for screening mammogram for malignant neoplasm of breast (principal)
CPT/HCPCS: 77063; 77067

== ENCOUNTER → 2024-10-07 | Outpatient (CLI) | payer BC ==
--- NOTE | 2024-10-09 17:42 | MM ---
Reason for Exam: Screening (asymptomatic). Last mammogram was performed 1 year(s) and 8 month(s) ago. Patient History: Menarche at age 15. First Full-Term at age 27. Hysterectomy at age 40. Patient has history of breast feeding. Progesterone for 6 months starting at age 32. Patient used Hormonal Contraceptives for 5 years. Risk Values: Irasema 5 year model risk: 0.7%. NCI Lifetime model risk: 10.9%. Prior Study Comparison: 01/11/2018 Bilateral Screening Mammogram, [facility]. 11/11/2021 Bilateral Diagnostic Mammogram, [facility]. 02/19/2023 Bilateral MG 3D screening mammo w/cad, [facility]. Tissue Density: The breasts are heterogeneously dense, which may obscure small masses. Findings: Analyzed By CAD. The pattern is symmetrical. Pattern is stable. No significant interval changes are evident No suspicious groups of microcalcifications, spiculated or lobular masses, architectural distortion or other secondary signs of malignancy are mammographically apparent. Overall Assessment: Benign, BI-RAD 2 Management: Screening Mammogram of both breasts in 1 year. A negative mammogram report should not preclude additional follow up of suspicious palpable abnormalities. Patient should continue monthly self breast exam. A clinical breast exam by your physician is recommended on an annual basis and results should be correlated with mammographic findings. Note on Irasema scores and lifetime risk: 1. A Irasema score greater than 3% is considered moderate risk. If this is the case, consider specialist referral to assess eligibility for a risk reducing agent. 2. If overall lifetime risk for the development of breast cancer is 20% or higher, the patient may qualify for future screening with alternating mammogram and breast MRI. [facility], , 10/09/2024 5:39 PM. Electronically signed and approved by: Jovany Moses D.O. Radiologis
== END | disposition home or self-care (01) ==
LOC: RADMAMWWP 12:48
PROVIDERS: ATTEND Family Medicine
DX: Z12.31 Encounter for screening mammogram for malignant neoplasm of breast (principal); R92.333 Mammographic heterogeneous density, bilateral breasts
CPT/HCPCS: 77063; 77067

== ENCOUNTER → 2025-04-05 | Outpatient (CLI) | payer BC ==
--- NOTE | 2025-04-05 16:04 | US ---
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 Either a parapelvic cyst or extrarenal pelvi s. No calyceal dilatation to suggest hydronephrosis. Left Kidney: Hypoechoic area medial measuring 3.0 x 3.1 x 3.6 cm. No hydronephrosis. Bladder: Anechoic Bilateral Jets seen: yes IMPRESSION: 1. No hydronephrosis. 2. There is a 2.6 cm round hypoechoic area medial to the left kidney. The exact etiology is unclear. Abnormal lymph node or atypical splenule are considerations. Correlate with CT findings to exclude an y worrisome etiology. [facility], , 04/05/2025 4:01 PM
== END | disposition home or self-care (01) ==
LOC: RADUSWWP 12:55
PROVIDERS: ATTEND Family Medicine
DX: N39.9 Disorder of urinary system, unspecified (principal); N28.89 Other specified disorders of kidney and ureter
CPT/HCPCS: 76770